=== PATIENT | female | born 1985 | race Caucasian/White ===

== ENCOUNTER 2025-02-04 12:00 | Emergency (ER) | payer OTHER ==
[~2025-02-04] VITALS: Ht 157.5 cm; Wt 90.0 kg
[2025-02-04] MEDS ORDERED: OXYCODONE/APAP 5/325 TAB PO ONE (12:15)
[2025-02-04] MEDS ORDERED: ONDANSETRON 4 MG TAB ODT SL ONE (12:15)
[2025-02-04 14:21] VITALS: BP 129/79
[2025-02-04] MEDS ORDERED: IBUPROFEN 600 MG TAB PO ONE (14:30)
== END 2025-02-04 14:21 | disposition home or self-care (01) ==
LOC: ED 12:00
DX: M25.531 Pain in right wrist (principal); F17.200 Nicotine dependence, unspecified, uncomplicated; Z88.1 Allergy status to other antibiotic agents
CPT/HCPCS: 73110; 73200; 99284-25; A9270